=== PATIENT | female | born 1990 | race Caucasian/White ===

== ENCOUNTER 2017-09-20 16:16 | Emergency (ER) | payer OTHER, MEDICAID, SELFPAY ==
[2017-09-20 16:20] VITALS: BP 121/81; PULSE 108; RESP 22; TEMP 36.6; O2SAT 100; BMI 19.3
--- NOTE | 2017-09-20 18:39 | ED.SKABFB ---
HPI - Skin/Abscess/Foreign Bdy <CAROLYNN Moreno - Last Filed: 09/20/17 23:48> General Chief complaint: Skin/Abscess/Foreign Body Stated complaint: BLISTERS ON HER SHINS Time Seen by Provider: 09/20/17 18:18 Source: patient Mode of arrival: ambulatory Limitations: no limitations History of Present Illness HPI narrative: Patient presents with chief complaint of blistering on her cunningham. She states this is been going on since yesterday. She attributes it to the prednisone which she was started on by a referral specialist last month. She denies any fevers, nausea or vomiting or diarrhea. She does state pain from her lower leg. She denies any redness, drainage or signs or symptoms of infection. She has not taken anything for the pain. Related Data Previous Rx's Medication Instructions Recorded albuterol sulfate [Proventil HFA] 1 puff INH TID #8.5 gm 06/19/17 bupropion HCl [Wellbutrin SR] 150 mg PO BID #90 tab 06/19/17 Allergies Allergy/AdvReac Type Severity Reaction Status Date / Time No Known Drug Allergies Allergy Unknown Unverified 07/29/17 12:33 Review of Systems <CAROLYNN Moreno - Last Filed: 09/20/17 23:48> Review of Systems GENERAL: Denies chills, fatigue, malaise, fever, sweats. HEENT: Denies sinus pain, ear pain, sore throat, difficulty swallowing, dizziness. RESPIRATORY: Denies dyspnea, cough, wheezing, hemoptysis, sputum. CARDIOVASCULAR: Denies chest pain, palpitations, orthopnea, edema, GASTROINTESTINAL: Denies nausea, vomiting, abdominal pain, diarrhea, constipation, melena. : Denies dysuria, frequency, incontinence, hematuria, urinary retention. MUSCULOSKELETAL: denies weakness, joint pain, or bony pain SKIN: See HPI NEUROLOGIC: Denies weakness, headache, numbness, change in speech, confusion, seizures, incoordination. PSYCHIATRIC: No concerning psychosocial issues. 12 point review of systems is negative except for those stated above Exam <CAROLYNN Moreno - Last Filed: 09/20/17 23:48> Narrative Exam Narrative: GENERAL: This is a well-nourished, well-developed patient, drawing on stretcher. HEAD: Atraumatic. Normocephalic. No temporal or scalp tenderness. EYES: Pupils equal round and reactive. Extraocular motions intact. No scleral icterus. No injection or drainage. ENT: Nose without bleeding, purulent drainage or septal hematoma. Throat without erythema, tonsillar hypertrophy or exudate. Uvula midline. Airway patent. NECK: Trachea midline. No JVD or lymphadenopathy. Supple, nontender, no meningeal signs. CARDIOVASCULAR: Regular rate and rhythm without murmurs, gallops, or rubs. RESPIRATORY: Clear to auscultation. Breath sounds equal bilaterally. No wheezes, rales, or rhonchi. GASTROINTESTINAL: Abdomen soft, non-tender, nondistended. No hepato-splenomegaly, or palpable masses. No guarding. EXTREMITIES: No clubbing, cyanosis, or edema. No joint tenderness, effusion, or edema noted. BACK: Nontender without deformity or crepitance. No flank tenderness. NEURO: AOx3. SKIN: Profuse psoriasis noted bilateral lower extremities. No extending redness or drainage. No visible blister were patient states blister was located on right lower cunningham. No palpable abscess or fluctuance. Initial Vital Signs Initial Vital Signs: Vital Signs Temperature 97.9 F 09/20/17 16:20 Pulse Rate 108 H 09/20/17 16:20 Respiratory Rate 22 09/20/17 16:20 Blood Pressure 121/81 H 09/20/17 16:20 Pulse Oximetry 100 09/20/17 16:20 <Kyle Babin DO - Last Filed: 09/21/17 01:40> Initial Vital Signs Initial Vital Signs: Vital Signs Temperature 97.9 F 09/20/17 16:20 Pulse Rate 108 H 09/20/17 16:20 Respiratory Rate 22 09/20/17 16:20 Blood Pressure 121/81 H 09/20/17 16:20 Pulse Oximetry 100 09/20/17 16:20 Course <YULIYA MorenoBC - Last Filed: 09/20/17 23:48> Hospital Course: Patient presented with concern for blister on lower legs. However patient did not have a visible blister. Vital signs remained stable. She was offered pain medication, which she declined. Orders Ordered: Discontinued Medications Acetaminophen (Tylenol) 650 mg PO NOW ONE Stop: 09/20/17 18:53 Last Admin: 09/20/17 19:05 Dose: Not Given Vital Signs - 8 hr 09/20/17 16:20 Temperature 97.9 F Pulse Rate 108 H Respiratory Rate 22 Blood Pressure 121/81 H Pulse Oximetry 100 <Kyle Babin DO - Last Filed: 09/21/17 01:40> Orders Ordered: Discontinued Medications Acetaminophen (Tylenol) 650 mg PO NOW ONE Stop: 09/20/17 18:53 Last Admin: 09/20/17 19:05 Dose: Not Given Vital Signs - 8 hr 09/20/17 16:20 Temperature 97.9 F Pulse Rate 108 H Respiratory Rate 22 Blood Pressure 121/81 H Pulse Oximetry 100 MDM - Skin/Abscess/Foreign Bdy <SUSANA Moreno-BC - Last Filed: 09/20/17 23:48> MDM Narrative Medical decision making narrative: Pre shot presented for chief complaint of blister, which was not able to be located. She denies any drainage, spreading erythema, fever nausea vomiting or diarrhea. She had no signs or symptoms of infections. There is no evidence of abscess on exam. I discussed monitoring for the signs and symptoms of infection and following up with her primary care provider regarding her psoriasis. Patient no questions or concerns upon discharge Discharge Plan Departure Patient Disposition: Home, Self-Care Clinical Impression: Psoriasis Discharge Date/Time: 09/20/17 19:11 Interventions: ED Discharge Assessment Last Done: 09/20/17 19:10 Instructions: Minor Wounds (Alternative Therapy), Skin Wound Activity Restrictions/Additional Instructions: Monitor your leg for signs and symptoms of infection including redness that extends, drainage or fever. Please follow-up with your primary care provider or referral specialist regarding your psoriasis. I suggest rest, ice or heat for pain, [id number] medications as needed and able for pain, and elevation. Prescriptions: No Action bupropion HCl [Wellbutrin SR] 150 MG tablet extended release 12 hr 150 mg PO BID Qty: 90 RF: 3 albuterol sulfate [Proventil HFA] 90 MCG/PUFF HFA aerosol inhaler 1 puff INH TID Qty: 8.5 RF: 4 Referrals: Soren York MD [Primary Care Provider] - <DO Yaya Bahena Last Filed: 09/21/17 01:40> Cosign ED Attending Cosignature Attestation: I was immediately available in the department for consultation. Documentation has been reviewed. I agree with assessment and plan.
--- NOTE | 2017-09-20 18:45 | ED_ITS ---
HPI - Skin/Abscess/Foreign Bdy <CAROLYNN Moreno - Last Filed: 09/20/17 23:48> General Chief complaint: Skin/Abscess/Foreign Body Stated complaint: BLISTERS ON HER SHINS Time Seen by Provider: 09/20/17 18:18 Source: patient Mode of arrival: ambulatory Limitations: no limitations History of Present Illness HPI narrative: Patient presents with chief complaint of blistering on her cunningham. She states this is been going on since yesterday. 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 She denies any fevers, nausea or vomiting or diarrhea. She does state pain from her lower leg. She denies any redness, drainage or signs or symptoms of infection. She has not taken anything for the pain. Related Data Previous Rx's Medication Instructions Recorded albuterol sulfate [Proventil HFA] 1 puff INH TID #8.5 gm 06/19/17 bupropion HCl [Wellbutrin SR] 150 mg PO BID #90 tab 06/19/17 Allergies Allergy/AdvReac Type Severity Reaction Status Date / Time No Known Drug Allergies Allergy Unknown Unverified 07/29/17 12:33 Review of Systems <CAROLYNN Moreno - Last Filed: 09/20/17 23:48> Review of Systems GENERAL: Denies chills, fatigue, malaise, fever, sweats. HEENT: Denies sinus pain, ear pain, sore throat, difficulty swallowing, dizziness. RESPIRATORY: Denies dyspnea, cough, wheezing, hemoptysis, sputum. CARDIOVASCULAR: Denies chest pain, palpitations, orthopnea, edema, GASTROINTESTINAL: Denies nausea, vomiting, abdominal pain, diarrhea, constipation, melena. : Denies dysuria, frequency, incontinence, hematuria, urinary retention. MUSCULOSKELETAL: denies weakness, joint pain, or bony pain SKIN: See HPI NEUROLOGIC: Denies weakness, headache, numbness, change in speech, confusion, seizures, incoordination. PSYCHIATRIC: No concerning psychosocial issues. 12 point review of systems is negative except for those stated above Exam <CAROLYNN Moreno - Last Filed: 09/20/17 23:48> Narrative Exam Narrative: GENERAL: This is a well-nourished, well-developed patient, drawing on stretcher. HEAD: Atraumatic. Normocephalic. No temporal or scalp tenderness. EYES: Pupils equal round and reactive. Extraocular motions intact. No scleral icterus. No injection or drainage. ENT: Nose without bleeding, purulent drainage or septal hematoma. Throat without erythema, tonsillar hypertrophy or exudate. Uvula midline. Airway patent. NECK: Trachea midline. No JVD or lymphadenopathy. Supple, nontender, no meningeal signs. CARDIOVASCULAR: Regular rate and rhythm without murmurs, gallops, or rubs. RESPIRATORY: Clear to auscultation. Breath sounds equal bilaterally. No wheezes , rales, or rhonchi. GASTROINTESTINAL: Abdomen soft, non-tender, nondistended. No hepato-splenomegaly , or palpable masses. No guarding. EXTREMITIES: No clubbing, cyanosis, or edema. No joint tenderness, effusion, or edema noted. BACK: Nontender without deformity or crepitance. No flank tenderness. NEURO: AOx3. SKIN: Profuse psoriasis noted bilateral lower extremities. No extending redness or drainage. No visible blister were patient states blister was located on right lower cunningham. No palpable abscess or fluctuance. Initial Vital Signs Initial Vital Signs: Vital Signs Temperature 97.9 F 09/20/17 16:20 Pulse Rate 108 H 09/20/17 16:20 Respiratory Rate 22 09/20/17 16:20 Blood Pressure 121/81 H 09/20/17 16:20 Pulse Oximetry 100 09/20/17 16:20 <Kyle Babin DO - Last Filed: 09/21/17 01:40> Initial Vital Signs Initial Vital Signs: Vital Signs Temperature 97.9 F 09/20/17 16:20 Pulse Rate 108 H 09/20/17 16:20 Respiratory Rate 22 09/20/17 16:20 Blood Pressure 121/81 H 09/20/17 16:20 Pulse Oximetry 100 09/20/17 16:20 Course <YULIYA MorenoBC - Last Filed: 09/20/17 23:48> Hospital Course: Patient presented with concern for blister on lower legs. However patient did not have a visible blister. Vital signs remained stable. She was offered pain medication, which she declined. Orders Ordered: Discontinued Medications Acetaminophen (Tylenol) 650 mg PO NOW ONE Stop: 09/20/17 18:53 Last Admin: 09/20/17 19:05 Dose: Not Given Vital Signs - 8 hr 09/20/17 16:20 Temperature 97.9 F Pulse Rate 108 H Respiratory Rate 22 Blood Pressure 121/81 H Pulse Oximetry 100 <Kyle Babin DO - Last Filed: 09/21/17 01:40> Orders Ordered: Discontinued Medications Acetaminophen (Tylenol) 650 mg PO NOW ONE Stop: 09/20/17 18:53 Last Admin: 09/20/17 19:05 Dose: Not Given Vital Signs - 8 hr 09/20/17 16:20 Temperature 97.9 F Pulse Rate 108 H Respiratory Rate 22 Blood Pressure 121/81 H Pulse Oximetry 100 MDM - Skin/Abscess/Foreign Bdy <SUSANA Moreno-BC - Last Filed: 09/20/17 23:48> MDM Narrative Medical decision making narrative: Pre shot presented for chief complaint of blister, which was not able to be located. She denies any drainage, spreading erythema, fever nausea vomiting or diarrhea. She had no signs or symptoms of infections. There is no evidence of abscess on exam. I discussed monitoring for the signs and symptoms of infection and following up with her primary care provider regarding her psoriasis. Patient no questions or concerns upon discharge Discharge Plan Departure Patient Disposition: Home, Self-Care Clinical Impression: Psoriasis Discharge Date/Time: 09/20/17 19:11 Interventions: ED Discharge Assessment Last Done: 09/20/17 19:10 Instructions: Minor Wounds (Alternative Therapy), Skin Wound Activity Restrictions/Additional Instructions: Monitor your leg for signs and symptoms of infection including redness that extends, drainage or fever. 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 I suggest rest, ice or heat for pain , [id number] medications as needed and able for pain, and elevation. Prescriptions: No Action bupropion HCl [Wellbutrin SR] 150 MG tablet extended release 12 hr 150 mg PO BID Qty: 90 RF: 3 albuterol sulfate [Proventil HFA] 90 MCG/PUFF HFA aerosol inhaler 1 puff INH TID Qty: 8.5 RF: 4 Referrals: Soren York MD [Primary Care Provider] - <DO Yaay Bahena Last Filed: 09/21/17 01:40> Cosign ED Attending Cosignature Attestation: I was immediately available in the department for consultation. Documentation has been reviewed. I agree with assessment and plan.
--- NOTE | 2017-09-20 19:07 | PC.NURSE ---
pt has known psoriasis, as evidenced by all body rash, however was told by her doctor if she develops a blister to come to the ED. Her blister looks more like a scab. She denied wanting tylenol.
== END 2017-09-20 19:11 | disposition home or self-care (01) ==
PROVIDERS: Emergency Provider Nurse Practitioner Family
DX: L40.9 Psoriasis, unspecified (principal)
CPT/HCPCS: 99282

== ENCOUNTER → 2020-03-26 11:50 | Outpatient (CLI) | payer OTHER, MEDICAID, SELFPAY ==
--- NOTE | 2020-03-26 11:52 | DI.RAD.S_ITS ---
PROCEDURE: XR FOOT LT MIN 3V INDICATIONS: Follow-up foot fracture, 4th and 5th metatarsal TECHNIQUE: 3 views of the foot were acquired. COMPARISON: None. FINDINGS: Bones: Oblique fractures of the 4th and 5th metatarsal diaphyses, with medial displacement of the distal fragments. There is mild overriding appearance. Soft tissues: No tibiotalar joint effusion. Achilles tendon appears normal. IMPRESSION: Overriding, oblique 4th and 5th metatarsal fractures as above Dictated by: Regan Carreno M.D. on 03/26/2020 at 13:03 Approved by: Regan Carreno M.D. on 03/26/2020 at 13:06
== END ==
PROVIDERS: PCP Family Medicine; Referring Provider Family Medicine; Visit Provider Family Medicine
DX: S92.902A Unspecified fracture of left foot, initial encounter for closed fracture (principal); S92.342A Displaced fracture of fourth metatarsal bone, left foot, initial encounter for closed fracture; S92.352A Displaced fracture of fifth metatarsal bone, left foot, initial encounter for closed fracture; X58.XXXA Exposure to other specified factors, initial encounter
CPT/HCPCS: 73630

== ENCOUNTER 2020-10-03 09:46 | Emergency (ER) | payer OTHER, MEDICAID, SELFPAY ==
[2020-10-03] VITALS (9 sets, daily range): BP systolic 91–132; BP diastolic 54–79; PULSE 78–113; RESP 16–23; TEMP 36.9; O2SAT 95–100; BMI 20.7
--- NOTE | 2020-10-03 09:57 | ED.ABDPAIN ---
HPI - Abdominal Pain General Chief Complaint: Nausea/Vomiting/Diarrhea Stated Complaint: shaky,puking, 'just doesn't feel good' Time Seen by Provider: 10/03/20 09:51 Source: patient Mode of arrival: Ambulatory Limitations: no limitations History of Present Illness HPI narrative: 30-year-old female daily smoker, drinks 2-3 beers daily and uses marijuana presents with 3 weeks of feeling shaky, general body aches, nauseated and lightheaded. She has had no chest pain or shortness of breath. She denies any fever or chills. She denies any change in bowel habits such as diarrhea constipation. She denies any dysuria, frequency or urgency. She is sexually active but currently on her menses. She denies any change in her alcohol intake. She denies any dietary change or recent travel MD complaint: other Onset (ago): week(s) Pain Consistency: constant Location: diffuse Severity: mild Quality: cramping Relieving factors: nothing Exacerbating factors: nothing Associated symptoms: nausea and vomiting Related Data Previous Rx's Medication Instructions Recorded albuterol sulfate [Proventil HFA] 1 puff INH TID #8.5 gm 06/19/17 ibuprofen 600 mg tablet 600 mg PO TID #90 tab 04/03/20 tramadol 50 mg tablet 50 mg PO TID PRN #30 tab 04/07/20 trazodone 50 mg tablet 50 mg PO BEDTIME #30 tab 06/25/20 varenicline 0.5 mg (11)-1 mg (42) See Rx Instructions PO PER PKG DIR 07/13/20 tablets in a dose pack #53 ea varenicline 1 mg tablet 1 mg PO BID #56 tab 08/01/20 ondansetron 4 mg PO TID-QID PRN #10 tab 10/03/20 Allergies Allergy/AdvReac Type Severity Reaction Status Date / Time No Known Drug Allergies Allergy Unknown Verified 10/03/20 09:55 Review of Systems Constitutional Constitutional: Denies chills, Reports fatigue, Denies fever(s), Denies frequent falls, Reports lethargy and Reports weakness Eyes Eyes: Denies change in vision, Denies eye discharge, Denies irritation and Denies loss of vision ENT Ears, Nose, Mouth, and Throat: Denies change in voice, Denies dizziness, Denies neck pain, Denies sore throat and Denies throat swelling Cardiovascular Cardiovascular: Denies chest pain, Denies irregular heart rhythm, Denies lightheadedness, Denies palpitations, Denies dyspnea, Denies dyspnea on exertion and Denies orthopnea Respiratory Respiratory: Denies cough, Denies dyspnea, Denies dyspnea on exertion and Denies wheezing Gastrointestinal Gastrointestinal: Reports abdominal pain, Denies change in bowel habits, Denies diarrhea, Reports nausea and Reports vomiting Musculoskeletal Musculoskeletal: Denies neck pain and Denies numbness Integumentary/Breasts Skin/Breast: Denies pruritus, Denies erythema, Denies rash and Denies wounds Neurologic Neurologic: Denies behavioral changes, Denies confusion, Denies dizziness, Denies frequent falls, Denies loss of vision, Denies numbness and Reports weakness Psychiatric Psychiatric: Denies anxiety, Denies behavioral changes, Denies confusion, Denies depression, Denies homicidal ideation and Denies suicidal ideation Endocrine Endocrine: Reports fatigue, Denies flushing and Denies palpitations Hematologic/Lymphatic Hematologic/Lymphatic: Denies easy bruising Allergic/Immunologic Allergic/Immunologic: Denies urticaria, Denies throat swelling and Denies wheezing Patient History Medical History Anxiety Asthma Depression Foot fracture, left Tobacco abuse disorder Surgical History History of foot surgery (~03/09/20) Status post delivery (04/30/15) Family History Father Hypertension Mother Hypertension Social History Smoking Status: Current every day smoker Smoking Status: Current every day smoker alcohol intake frequency: 0-2 drinks per day Substance Use Type: marijuana Exam Narrative Exam Narrative: GENERAL: [30] year old patient appears stated age. Well-developed patient, in mild distress. Anxious HEAD: Atraumatic. Normocephalic. EYES: Pupils equal round and reactive. Extraocular motions intact. No scleral icterus. No injection or drainage. ENT: Nose without bleeding, purulent drainage. Throat without erythema, tonsillar hypertrophy or exudate. Airway patent. NECK: Trachea midline. Non tender CARDIOVASCULAR: Tachycardic but regular rhythm without murmurs, gallops, or rubs. RESPIRATORY: Clear to auscultation. Breath sounds equal bilaterally. No wheezes, rales, or rhonchi. GASTROINTESTINAL: Abdomen soft, non-tender, nondistended. EXTREMITIES: No edema or joint tenderness. BACK: Nontender without deformity or crepitance. No flank tenderness. NEURO: AOx3. SKIN: No rash or erythema of visible areas Initial Vital Signs Initial Vital Signs: Vital Signs Temperature 98.4 F 10/03/20 09:50 Pulse Rate 113 H 10/03/20 09:50 Respiratory Rate 17 10/03/20 09:50 Blood Pressure 132/79 10/03/20 09:50 Pulse Oximetry 99 10/03/20 09:50 Course Orders Ordered: ED Orders 10/03/20 10:25 Urine Drug Screen, Rapid Stat Discontinued Medications Lactated Ringer's (Lactated Ringers) 1,000 mls @ 1,000 mls/hr IV BOLUS ONE Stop: 10/03/20 10:54 Last Infusion: 10/03/20 11:21 Dose: 0 mls/hr Documented by: Admin: 10/03/20 10:02 Dose: 1,000 mls/hr Documented by: TREE Thiamine HCl 200 mg/ Sodium (Chloride) 102 mls @ 408 mls/hr IV NOW ONE Stop: 10/03/20 10:37 Last Infusion: 10/03/20 11:39 Dose: 0 mls/hr Documented by: Admin: 10/03/20 11:18 Dose: 408 mls/hr Documented by: SAMPSON Lorazepam (Lorazepam 2 Mg/Ml Inj) 1 mg 0.02 mg/kg (1 mg) IV NOW ONE Stop: 10/03/20 10:37 Last Admin: 10/03/20 11:04 Dose: 1 mg Documented by: ARIA Vital Signs Vital signs: Vital Signs - 8 hr 10/03/20 11:30 10/03/20 12:00 Pulse Rate 85 82 Respiratory Rate 17 16 Blood Pressure 91/54 L 101/54 L Pulse Oximetry 98 100 MDM - Abdominal Pain Lab Data Result diagrams: 10/03/20 09:57 10/03/20 09:57 Labs: Lab Results 10/03/20 10/03/20 10/03/20 Range/Units 09:57 09:57 09:57 WBC 4.6 (4.5-11.0) X10^3/uL RBC 3.95 L (4.0-5.2) X10^6/uL Hgb 12.6 (12.0-16.0) g/dL Hct 38.2 (36-46) % MCV 96.7 (80-100) fL MCH 31.9 (26-34) PG MCHC 33.0 (30-36) % RDW 16.3 H (11.6-14.8) % Plt Count 249 (150-400) X10^3/uL Neut % (Auto) 47.9 L (50-75) % Lymph % (Auto) 41.1 H (25-40) % [place] % (Auto) 5.7 (3-14) % Eos % (Auto) 4.3 H (2-4) % Baso % (Auto) 1.0 (0-2) % Neut # (Auto) 2200 (2198-4245) /uL Lymph # (Auto) 1900 (6448-8882) /uL [place] # (Auto) 300 (0-900) /uL Eos # (Auto) 200 (0-450) /uL Baso # (Auto) 0 (0-100) /uL Sodium 143 (137-145) mmol/L Potassium 4.2 (3.4-5.1) mmol/L Chloride 108 H (98-107) mmol/L Carbon Dioxide 25 (22-32) mmol/L BUN 6 L (7-17) mg/dL Creatinine 0.44 L (0.52-1.04) mg/dL Estimated GFR > 60.0 (>60) mL/min BUN/Creatinine Ratio 13.6 (6-22) Glucose 93 (70-100) mg/dL Calcium 8.9 (8.4-10.2) mg/dL Magnesium (1.6-2.3) mg/dL Total Bilirubin 0.3 (0.2-1.3) mg/dL AST 45 H (14-36) IU/L ALT 26 (<35) IU/L Alkaline Phosphatase 57 (38-126) U/L Total Protein 7.6 (6.3-8.2) g/dL Albumin 4.6 (3.5-5.0) g/dL Globulin 3.0 (1.7-4.1) g/dL Albumin/Globulin Ratio 1.5 (1.0-2.8) Lipase (23-300) U/L U Opiates 300ng/mL cut (Negative) Ur Oxycodone Screen (Negative) Urine Methadone Screen (Negative) Ur Barbiturates Screen (Negative) U Tricyclic Antidepress (Negative) Ur Phencyclidine Scrn (Negative) Ur Amphetamines Screen (Negative) U Methamphetamines Scrn (Negative) Ur MDMA Scrn (Ecstasy) (Negative) U Benzodiazepines Scrn (Negative) Urine Cocaine Screen (Negative) U Marijuana (THC) Screen (Negative) Ethyl Alcohol 376 H ( - 10) mg/dL 10/03/20 10/03/20 Range/Units 09:57 10:25 WBC (4.5-11.0) X10^3/uL RBC (4.0-5.2) X10^6/uL Hgb (12.0-16.0) g/dL Hct (36-46) % MCV (80-100) fL MCH (26-34) PG MCHC (30-36) % RDW (11.6-14.8) % Plt Count (150-400) X10^3/uL Neut % (Auto) (50-75) % Lymph % (Auto) (25-40) % [place] % (Auto) (3-14) % Eos % (Auto) (2-4) % Baso % (Auto) (0-2) % Neut # (Auto) (9539-8282) /uL Lymph # (Auto) (0716-0407) /uL [place] # (Auto) (0-900) /uL Eos # (Auto) (0-450) /uL Baso # (Auto) (0-100) /uL Sodium (137-145) mmol/L Potassium (3.4-5.1) mmol/L Chloride (98-107) mmol/L Carbon Dioxide (22-32) mmol/L BUN (7-17) mg/dL Creatinine (0.52-1.04) mg/dL Estimated GFR (>60) mL/min BUN/Creatinine Ratio (6-22) Glucose (70-100) mg/dL Calcium (8.4-10.2) mg/dL Magnesium 2.2 (1.6-2.3) mg/dL Total Bilirubin (0.2-1.3) mg/dL AST (14-36) IU/L ALT (<35) IU/L Alkaline Phosphatase (38-126) U/L Total Protein (6.3-8.2) g/dL Albumin (3.5-5.0) g/dL Globulin (1.7-4.1) g/dL Albumin/Globulin Ratio (1.0-2.8) Lipase 127 (23-300) U/L U Opiates 300ng/mL cut Negative (Negative) Ur Oxycodone Screen Negative (Negative) Urine Methadone Screen Negative (Negative) Ur Barbiturates Screen Negative (Negative) U Tricyclic Antidepress Negative (Negative) Ur Phencyclidine Scrn Negative (Negative) Ur Amphetamines Screen Negative (Negative) U Methamphetamines Scrn Negative (Negative) Ur MDMA Scrn (Ecstasy) Negative (Negative) U Benzodiazepines Scrn Negative (Negative) Urine Cocaine Screen Negative (Negative) U Marijuana (THC) Screen Positive H (Negative) Ethyl Alcohol ( - 10) mg/dL Point of care testing: Point of Care Testing Test Results Negative Urine Dip Bedside Urine Glucose Negative Bedside Urine Bilirubin - Negative Bedside Urine Ketone - Negative Urine Specific [place] 1.015 Bedside Urine Occult Blood - Negative Bedside Urine pH 6.5 Bedside Urine Protein - Negative Bedside Urine Urobilinogen - Negative Bedside Urine Nitrite - Negative Bedside Urine Leukocytes - Negative Esterase Discharge Plan Departure Patient Disposition: Home Clinical Impression: Alcohol abuse Vomiting Qualifiers: Vomiting type: unspecified Vomiting Intractability: non-intractable Nausea presence: with nausea Qualified Code(s): R11.2 - Nausea with vomiting, unspecified Instructions: DI for Vomiting -- Adult Activity Restrictions/Additional Instructions: *You have been diagnosed with [vomiting and alcohol abuse, otherwise labs and exam are very reassuring] *What to do: *Please continue to take your regular medications as directed. [ x] New medication prescriptions sent to your pharmacy: [ [facility]] [ ] New medication written as a paper prescription [ ] No new medications given *Please follow up with your primary care provider in 2-3 days, call for an appointment. Let them know you were seen in the Emergency Department and that we ask that you be seen in follow up. We will electronically transmit a record of today's note if your PCP is in our system *If you do not have a primary care provider please contact the [facility] Resource line at [phone]. They will ask some questions about your medical history and help get you set up with a doctor in the community. *Return to Emergency Department if you should have any new, worsening or concerning symptoms, such as [fever greater than 101 F, shaking chills, worsening pain, persistent vomiting or other bothersome symptoms] Prescriptions: New ondansetron 4 mg tablet,disintegrating 4 mg PO TID-QID PRN (Reason: nausea and vomiting) Qty: 10 RF: 0 No Action albuterol sulfate [Proventil HFA] 90 MCG/PUFF HFA aerosol inhaler 1 puff INH TID Qty: 8.5 RF: 4 ibuprofen 600 mg tablet 600 mg PO TID Qty: 90 RF: 2 tramadol 50 mg tablet 50 mg PO TID PRN (Reason: pain) Qty: 30 RF: 1 trazodone 50 mg tablet 50 mg PO BEDTIME Qty: 30 RF: 0 Chantix Starting Month Box 0.5 mg (11)- 1 mg (42) tablets,dose pack See Rx Instructions PO PER PKG DIR Qty: 53 RF: 0 Chantix Continuing Month Box 1 mg tablet 1 mg PO BID Qty: 56 RF: 1 Referrals: Jassi Gonzalez, [Primary Care Provider] -
[2020-10-03] MEDS: LACTATED RINGERS 1,000 ML 1000 ML IV (10:02)
[2020-10-03 10:07] LABS: Add Manual Diff / Slide Review NO; Basophils Absolute Auto 0 /uL (0-100); Eosinophils Absolute Auto 200 /uL (0-450); Eosinophils Percent Auto 4.3 % (2-4); Hematocrit 38.2 % (36-46); Hemoglobin 12.6 g/dL (12.0-16.0); Lymphocytes Absolute Auto 1900 /uL (1100-4500); Lymphocytes Percent Auto 41.1 % (25-40); Mean Corpuscular Hemoglobin 31.9 PG (26-34); Mean Corpuscular Volume 96.7 fL (80-100); Monocytes Absolute Auto 300 /uL (0-900); Monocytes Percent Auto 5.7 % (3-14); Neutrophils Absolute Auto 2200 /uL (1500-7000); Neutrophils Percent Auto 47.9 % (50-75); Platelet Count 249 X10^3/uL (150-400); Red Blood Cell Count 3.95 X10^6/uL (4.0-5.2); Red Cell Distribution Width 16.3 % (11.6-14.8); White Blood Cell Count 4.6 X10^3/uL (4.5-11.0)
[2020-10-03 10:18] LABS: Alanine Aminotransferase 26 IU/L (<35); Albumin 4.6 g/dL (3.5-5.0); Albumin Globulin Ratio 1.5 (1.0-2.8); Alkaline Phosphatase 57 U/L (38-126); Aspartate Aminotransferase 45 IU/L (14-36); BUN Creatinine Ratio 13.6 (6-22); Bilirubin Total 0.3 mg/dL (0.2-1.3); Blood Urea Nitrogen 6 mg/dL (7-17); Calcium 8.9 mg/dL (8.4-10.2); Carbon Dioxide 25 mmol/L (22-32); Chloride 108 mmol/L (98-107); Estimated Glomerular Filt Rate > 60.0 mL/min (>60); Glucose 93 mg/dL (70-100); HEMOLYSIS < 15 (0-50); Potassium 4.2 mmol/L (3.4-5.1); Sodium 143 mmol/L (137-145); Total Protein 7.6 g/dL (6.3-8.2)
[2020-10-03 10:19] LABS: Lipase 127 U/L (23-300); Magnesium 2.2 mg/dL (1.6-2.3)
[2020-10-03 10:28] LABS: Ethanol (ETOH) 376 mg/dL
[2020-10-03 10:46] LABS: UR Morphine/Opiate cutoff 300 Negative (Negative); Ur Creatinine Normal (Normal); Ur Specific Gravity Normal (Normal); Urine Amphetamines Negative (Negative); Urine Barbiturates Negative (Negative); Urine Benzodiazepines Negative (Negative); Urine Cocaine Negative (Negative); Urine MDMA Negative (Negative); Urine Methadone Negative (Negative); Urine Methamphetamines Negative (Negative); Urine Phencyclidine Negative (Negative); Urine Tetrahydrocannabinol Positive (Negative); Urine pH Normal (Normal)
[2020-10-03 10:47] LABS: Urine Oxycodone Negative (Negative); Urine Tricyclic Antidepressant Negative (Negative)
[2020-10-03] MEDS: LORazepam 2 MG/ML INJ 1 MG IV (11:04)
[2020-10-03] MEDS: THIAMINE 200 MG in SODIUM CHLORIDE 0.9% 100 ML 408 ML IV (11:18)
--- NOTE | 2020-10-03 12:50 | PC.NURSE ---
Pt eating lunch,waiting for ride
--- NOTE | 2020-10-03 13:06 | PC.NURSE ---
Pt ambulating well with a steady gait. Eating lunch at this time
== END 2020-10-03 14:07 | disposition home or self-care (01) ==
PROVIDERS: Emergency Provider Emergency Medicine; PCP Family Medicine
DX: F10.10 Alcohol abuse, uncomplicated (principal); Y90.8 Blood alcohol level of 240 mg/100 ml or more; R11.2 Nausea with vomiting, unspecified; R42 Dizziness and giddiness; R10.9 Unspecified abdominal pain
CPT/HCPCS: 36415; 80053; 80305; 80320; 81003; 81025; 83690; 83735; 85025; 93005; 96361; 96374; 99284; J2060

== ENCOUNTER → 2020-11-06 07:10 | Outpatient (CLI) | payer OTHER, MEDICAID, SELFPAY ==
--- NOTE | 2020-11-06 07:11 | DI.MRI.S_ITS ---
PROCEDURE: MR ABDOMEN WO/W CON INDICATIONS: history of cirrhosis continue drinking concerns regarding p TECHNIQUE: Coronal HASTE, axial 2D FLASH in- and [id number]; axial breath-hold T2 FSE. Dynamic axial VIBE during the administration of contrast; post-contrast coronal VIBE or 2D FLASH with fat saturation from the hepatic dome to the iliac crests. Optional diffusion weighted imaging and ADC may be performed. COMPARISON: None. FINDINGS: Image quality: Excellent. Lung bases: No basal pleural effusions. Heart size is normal. Solid organs: Liver is normal in size measuring 17.0 cm in length. The liver margin is smooth. Morphology is normal. T1 and T2 signal are normal without significant steatosis or heavy metal deposition. Gallbladder is normal without stones, or wall thickening. Biliary system is non dilated. Pancreas is normal in morphology. Spleen is normal in size measuring 8.7 cm in length, and normal enhancement. No adrenal nodules. Both kidneys demonstrate normal size and enhancement, without hydronephrosis. Nodes and vessels: No retroperitoneal or mesenteric adenopathy by size criteria. Aorta and inferior vena cava are normal in size. No upper abdominal varices visible. The portal vein is at the upper limits of normal measuring 1.5 cm. Bowel and peritoneum: Unenhanced bowel loops are normal in caliber. No free fluid. Bones and soft tissues: No ventral hernias. [id number] reverse S scoliosis of the lumbar spine. Bone marrow is normal in overall signal. IMPRESSION: 1. No evidence of cirrhosis or portal hypertension. Dictated by: Marley Lutz M.D. on 11/06/2020 at 8:23 Approved by: Marley Lutz M.D. on 11/06/2020 at 8:43
== END ==
PROVIDERS: PCP Family Medicine; Referring Provider Family Medicine; Visit Provider Family Medicine
DX: F10.10 Alcohol abuse, uncomplicated (principal)
CPT/HCPCS: 74183; A9579

== ENCOUNTER → 2021-09-09 12:27 | Outpatient (CLI) | payer OTHER, MEDICAID, SELFPAY | PROVIDERS: Visit Provider Nurse Practitioner Family | DX: L02.91 Cutaneous abscess, unspecified (principal) | CPT/HCPCS: 87070; 87205 ==